=== PATIENT | male | born 1995 | race Caucasian/White ===

== ENCOUNTER 2018-05-25 14:25 | Emergency (ER) | payer OTHER ==
[2018-05-25 15:23] VITALS: BP 126/72
--- NOTE | 2018-05-25 15:35 | UC ---
General HPI - HPI Summary HPI Summary: sore throat and feeling off since yesterday. notes a spot on his R tonsil. He denies any muffled voice or difficulty with swallow. - History of Current Complaint Chief Complaint: UCGeneralIllness Stated Complaint: SORE THROAT Time Seen by Provider: 05/25/18 15:25 Hx Obtained From: Patient Onset/Duration: Gradual Onset Timing: Constant Pain Intensity: 4 Associated Signs & Symptoms: Negative: Fever - Allergy/Home Medications Allergies/Adverse Reactions: Allergies Allergy/AdvReac Type Severity Reaction Status Date / Time No Known Allergies Allergy Verified 05/25/18 15:23 Home Medications: Home Medications NK [No Home Medications Reported] 05/25/18 [History Confirmed 05/25/18] PMH/Surg Hx/FS Hx/Imm Hx Previously Healthy: Yes - Surgical History Surgical History: Yes Surgery Procedure, Year, and Place: wisdom teeth. pilonidal cyst - Family History Known Family History: Positive: None - Social History Occupation: Student Lives: Dormitory/Roommates Alcohol Use: Rare Substance Use Type: Marijuana Substance Use Comment - Amount & Last Used: occasional/once a week Smoking Status (MU): Current Some Day Smoker - Immunization History Vaccination Up to Date: Yes Review of Systems Constitutional: Other - malaise Skin: Negative Eyes: Negative ENT: Sore Throat Respiratory: Negative Cardiovascular: Negative Gastrointestinal: Negative Genitourinary: Negative Motor: Negative Neurovascular: Negative Musculoskeletal: Negative Neurological: Negative Psychological: Negative Is Patient Immunocompromised?: No All Other Systems Reviewed And Are Negative: Yes Physical Exam Triage Information Reviewed: Yes Appearance: Well-Appearing Vital Signs: Initial Vital Signs Temp 98.5 F 05/25/18 15:16 Pulse 82 05/25/18 15:16 Resp 16 05/25/18 15:16 BP 126/72 05/25/18 15:16 Pulse Ox 99 05/25/18 15:16 Vital Signs Reviewed: Yes Eyes: Positive: Conjunctiva Clear ENT: Positive: Pharyngeal erythema, TMs normal, Uvula midline, Other - Tonsillar erythema with exudate on R. Negative: Nasal congestion, Nasal drainage, Trismus, Muffled voice, Hoarse voice Neck: Positive: Supple, Nontender, No Lymphadenopathy Respiratory: Positive: Lungs clear, Normal breath sounds Cardiovascular: Positive: No Murmur Abdomen Description: Positive: Nontender, No Organomegaly, Soft Bowel Sounds: Positive: Present Musculoskeletal: Positive: ROM Intact Neurological: Positive: Alert Psychological: Positive: Age Appropriate Behavior Skin Exam: Normal Diagnostics - Laboratory Diagnostic Studies Completed/Ordered: rapid strep=neg. Course/Dx - Course Course Of Treatment: non toxic. no concern for peritonsilar abscess. rapid strep =neg. tx supportive. - Differential Dx - Multi-Symptom Provider Diagnoses: Tonsillitis Discharge - Sign-Out/Discharge Documenting (check all that apply): Patient Departure All imaging exams completed and their final reports reviewed: No Studies - Discharge Plan Condition: Stable Disposition: HOME Patient Education Materials: Tonsillitis (ED) Referrals: [facility] [Outside] Additional Instructions: FOLLOW UP WITH THE [facility] IN 5-7 DAYS FOR A RECHECK. HAVE A RECHECK IMMEDIATELY FOR ANY WORSENING. - Billing Disposition and Condition Condition: STABLE Disposition: Home
== END 2018-05-25 15:50 | disposition home or self-care (01) ==
LOC: UCCORT 14:25
DX: J03.90 Acute tonsillitis, unspecified (principal); F17.200 Nicotine dependence, unspecified, uncomplicated
CPT/HCPCS: 87651; 99201; G0463